=== PATIENT | female | born 1960 | race Caucasian/White ===

== ENCOUNTER 2020-04-10 10:49 | Inpatient (IN) ==
[2020-04-10] MEDS ORDERED: ALBUTEROL SULFATE/IPRATROPIUM 3 ML NEBU IH ONE (11:28)
[2020-04-10] MEDS ORDERED: DEXAMETHASONE SODIUM PHOSP/PF 10 MG/ML VIAL IV ONE (11:28)
[2020-04-10 11:36] LABS: Hematocrit 42.6 % (37.0-47.0); Hemoglobin 13.6 gm/dL (12.5-16.0); Mean Cell Volume 94.7 fl (78-100); Mean Corpuscular Hemoglobin 30.2 pg (27-31); Mean Corpuscular Hgb Conc 31.9 g/dl (32-36); Mean Platelet Volume 12.2 fl (8-12.5); Neutrophil # 11.3 K/mm3 (1.3-6.0); Neutrophil % 89.3 % (42-75.0); Platelet Count 190 K/mm3 (150-450); Red Cell Distribution Width 13.1 % (11.5-14.0); White Blood Count 12.7 K/mm3 (4.0-10.5)
--- NOTE | 2020-04-10 11:46 | ERNOTE ---
Dyspnea - Date Date of Service: 04/10/20 - General Presenting Symptoms: difficulty of breathing Time Seen by Provider: 04/10/20 11:01 Source: patient Exam Limitations: no limitations - Immun/Allergies/Home Medications Immunizations: IMMUNIZATION HX Immunizations Up to Date Yes History of Influenza Vaccine Yes Hx Pneumococcal Vaccination No Allergies/Adverse Reactions: Allergies No Known Allergies Allergy (Verified 04/10/20 11:21) Home Medications: HOME MEDICATIONS coenzyme Q10 200 mg capsule 200 mg PO DAILY 03/03/19 [Last Taken Unknown] diphenhydramine 25 mg-acetaminophen 500 mg tablet 2 tab PO HS 03/03/19 [Last Taken Unknown] metoprolol succinate 50 mg tablet,extended release 24 hr See Rx Instructions .ROUTE .COMPLEX #90 unknown measurement unit code: tablet 12/11/19 [Last Taken Unknown] cyclobenzaprine 10 mg tablet See Rx Instructions .ROUTE .COMPLEX #180 unknown measurement unit code: tablet 03/11/20 [Last Taken Unknown] etodolac 500 mg tablet See Rx Instructions .ROUTE .COMPLEX #180 unknown measurement unit code: tablet 03/11/20 [Last Taken Unknown] - History of Present Illness Narrative: Patient presents to the ED for SOB. 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 She became ill Saturday, nausea, vomiting and now cough/congestion and SOB. Sats 77% RA on arrival. No CP. Legs swell chronically, bno new swelling. No DVT Sx. Mild headache Saturday. Has not seen anyone else for this. Worse with ambulation. 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 Denies: chest pain/discomfort Prior Treatment: Denies: recently seen Review of Systems - Review of Systems Constitutional: Present: fatigue EYE: Present: no symptoms reported ENT: Present: nose congestion Respiratory: Present: shortness of breath, cough Cardiology: Absent: chest pain Gastrointestinal/Abdominal: Present: See HPI Skin: Absent: rash Neurological: Absent: weakness All Other Systems: All systems neg except as marked Medical History (Last Reviewed 04/10/20 @ 11:44 by Jesus García MD) Hypertension (Chronic) Surgical History: Surgical History (Last Reviewed 04/10/20 @ 11:44 by Jesus García MD) History of ankle surgery History of delivery Family History: Family History (Last Reviewed 04/10/20 @ 11:44 by Jesus García MD) Mother Cancer Father Heart disease Social History: (Last Reviewed 04/10/20 @ 11:44 by Jesus García MD) Social History: Marital status: current occupation: RN Highest education level completed: Bachelor's degree Tobacco: Smoking Status: Former smoker Alcohol: alcohol intake: current Alcohol type: hard liquor alcohol intake frequency: holiday/special occasion details: 1 or 2 mixed drinks when she does Substance Use: substance use type: does not use Personal Safety: do you feel safe at home: Yes victim of physical abuse: No victim of emotional abuse: No victim of sexual abuse: No would you like helpful sources: No Physical Exam - Physical Exam General Appearance: Present: alert, other - mild tachypnea Head Exam: Present: normal inspection, no evidence of injury Eye Exam: Normal inspection: bilateral, PERRL: bilateral Ears, Nose, Throat: Present: normal ENT inspection Neck: Present: normal inspection Respiratory: Present: other - diminished bilaterally, mild tachypnea, on oxygen Cardiovascular/Chest: Present: regular rate, rhythm, normal peripheral pulses Gastrointestinal/Abdominal: Present: normal bowel sounds, nontender, soft Back Exam: Present: normal range of motion Extremity Exam: Present: normal range of motion Neurological Exam: Present: alert, no motor/sensory deficits Skin Exam: Present: normal color, warm/dry Progress - Results and Orders Patient's Lab Results:: I have reviewed the patient's lab results. - Vital Signs Patient's Vital Signs:: I have reviewed the patient's vital signs. Vital Signs: Vital Signs 04/10/20 11:05 Temperature 37.8 C Pulse Rate 94 Respiratory Rate 22 H Blood Pressure 109/67 O2 Sat by Pulse Oximetry 77 L - EKG EKG #1 EKG: NSR EKG read: Interp. by me EKG Comments: NSR rate 94. Non-specific ST/T wave changes, no clear evidence of STEMI - X-Ray X-Ray #1 X-Ray: chest Interpretation: Interp. by me X-ray Comments: No real time radiology reads, I personally reviewed CXR images. C/W Covid lung - Progress/Reassessment Chief Complaint: Dyspnea Progress Note-Subjective: 04/10/20 13:17 IV decadron given. Oxygen by NC. SubQ Lovenox given. D/W Dr Greenberg who will admit. Patient will need to be considered fro remdisivir in the hospital. Departure Clinical Impression: Pneumonia due to COVID-19 virus, Hypoxia - Departure Disposition: Still a patient Condition: Fair Referrals: Dionicio Arzate MD [Primary Care Provider] -
[2020-04-10 11:51] LABS: ALT 29 U/L (19-67); AST 59 U/L (0-48); Albumin * 2.7 gm/dl (3.4-5.0); Alkaline Phosphatase * 120 U/L (50-170); Anion Gap 16.5 mmol/L (6.8-13.8); BNP * 291 pg/mL (5-205); BUN/Creatinine Ratio 8.7 (9.0-21.6); Bilirubin, Total 0.7 mg/dL (0.0-1.1); Blood Urea Nitrogen 8 mg/dL (3-23); Ca. Corrected For Albumin 9.2 mg/dL (8.4-10.2); Calcium * 8.5 mg/dL (7.9-10.9); Carbon Dioxide 27.5 mmol/L (24-32.6); Chloride 95 mmol/L (97-106); Glucose * 118 mg/dL (70-110); Sodium 135 mmol/L (132-142); Total Protein 7.9 gm/dL (6.2-8.2); Troponin I Less than 0.017 ng/mL (0.00-0.10)
[2020-04-10] MEDS ORDERED: ENOXAPARIN SODIUM 100 MG/ML SYRG SC ONE (12:52)
[2020-04-10] MEDS ORDERED: ENOXAPARIN SODIUM 80 MG/0.8 ML DISP.SYRIN SC ONE (13:03)
--- NOTE | 2020-04-10 17:38 | HP ---
Chief Complaint - Chief Complaint Date of Service: 04/10/20 Time of Service: 17:32 Chief Complaint: Dyspnea made worse with exertion. History of Present Illness: Patient presents to the ED for SOB. 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 Sats 77% RA on arrival. No CP. Legs swell chronically, bno new swelling. No DVT Sx. Mild headache Saturday. Has not seen anyone else for this. Worse with ambulation. Medical History (Last Reviewed 04/10/20 @ 16:05 by Javan Adair RN) Hypertension (Chronic) Surgical History: Surgical History (Last Reviewed 04/10/20 @ 16:05 by Javan Adair RN) History of ankle surgery History of delivery Family History: Family History (Last Reviewed 04/10/20 @ 16:06 by Javan Adair RN) Mother Cancer Father Heart disease Social History: (Last Reviewed 04/10/20 @ 16:06 by Javan Adair RN) Social History: Marital status: current occupation: RN Highest education level completed: Bachelor's degree Tobacco: Smoking Status: Former smoker Alcohol: alcohol intake: current Alcohol type: hard liquor alcohol intake frequency: holiday/special occasion details: 1 or 2 mixed drinks when she does Substance Use: substance use type: does not use Personal Safety: do you feel safe at home: Yes victim of physical abuse: No victim of emotional abuse: No victim of sexual abuse: No would you like helpful sources: No Review Of Systems (GEN) - Review of Systems Generalized/Overall Review: Present: Weakness, Chills, Fever, Malaise, Fatigue EENTM: Present: No Symptoms Reported Respiratory: Present: Cough, Shortness of Breath Cardiac: Present: No Symptoms Reported Abdominal: Present: No Symptoms Reported Genitourinary: Present: No Symptoms Reported, Dysuria Neurological: Present: No Symptoms Reported Skin: Present: No Symptoms Reported Endocrine: Present: No Symptoms Reported Immunizations: IMMUNIZATION HX Immunizations Up to Date Yes History of Influenza Vaccine Yes Hx Pneumococcal Vaccination No Allergies/Adverse Reactions: Allergies Allergy/AdvReac Type Severity Reaction Status Date / Time No Known Allergies Allergy Verified 04/10/20 16:06 Home Medications: HOME MEDICATIONS coenzyme Q10 200 mg capsule 200 mg PO DAILY 03/03/19 [Last Taken Unknown] diphenhydramine 25 mg-acetaminophen 500 mg tablet 2 tab PO HS 03/03/19 [Last Taken Unknown] Cyclobenzaprine HCl 20 mg PO HS 04/10/20 [Last Taken Unknown] Etodolac See Rx Instructions PO BID 04/10/20 [Last Taken Unknown] Metoprolol Succinate See Rx Instructions .ROUTE DAILY 04/10/20 [Last Taken Unknown] Exam - Exam Vital Signs: Vital Signs - Last Taken Temp 36.8 C 04/10/20 16:08 Pulse 88 04/10/20 16:08 Resp 18 04/10/20 16:08 BP 127/67 04/10/20 16:08 Pulse Ox 95 04/10/20 16:08 Constitutional: Present: Alert, Oriented x3, Cooperative, Well developed, Well nourished, No distress ENT Exam: Present: normal ENT inspection, hearing grossly normal, pharynx normal, TMs normal Eye Exam: bilateral eye: normal inspection, PERRL, EOMI Neck: Present: non-tender, full range of motion, supple, normal inspection, trachea midline Back Exam: Present: normal inspection, no CVA tenderness, no vertebral tenderness Breasts: Present: Exam deferred Respiratory: Present: decreased breath sounds, crackles, rhonchi, wheezing Cardiovascular/Chest: Present: normal peripheral pulses, regular rate, rhythm, no chest tenderness, no edema, no gallop, no JVD, no murmur, no rub Peripheral Pulses: carotid (R): 2+, carotid (L): 2+, radial (R): 2+, radial (L): 2+ Abdomen: Present: Normal bowel sounds, soft, nontender, nondistended, no rebound tenderness, no hepatospenomegaly, no masses, obese /Rectal: Present: Exam deferred Extremity: Present: normal range of motion, non-tender, normal inspection, no pedal edema, no calf tenderness, normal capillary refill Skin Exam: Present: normal color, warm/dry, no cyanosis Lymphatic: Present: no adenopathy Neurologic: Present: tax director II-XII nml as tested, normal cerebellar test, no motor/sensory deficits, alert, normal mood/affect, oriented x 3 Appearance: Present: appropriate appearance, appropriate insight, neat, no memory impairment Eye contact: Present: cooperative, good eye contact, normal speech Thoughts: Present: normal thought pattern, no apparent hallucination Diagnostic Studies: Abnormal Lab Results 04/10/20 04/10/20 04/10/20 Range/Units 11:15 11: 11:15 WBC 12.7 H (4.0-10.5) K/mm3 MCHC 31.9 L (32-36) g/dl Immature Gran % (Auto) 0.70 H (0.001-0.429) % Immature Gran # (Auto) 0.09 H (0.000-0.0310) K/mm3 Neutrophils % 89.3 H (42-75.0) % Lymphocytes % 7.8 L (20-51) % Neutrophils # 11.3 H (1.3-6.0) K/mm3 Lymphocytes # 0.99 L (1.5-3.5) k/mm3 D-Dimer 1.05 H (0.19-0.49) ug/mL Chloride 95 L (97-106) mmol/L Anion Gap 16.5 H (6.8-13.8) mmol/L BUN/Creatinine Ratio 8.7 L (9.0-21.6) Random Glucose 118 H (70-110) mg/dL Lactic Acid, Venous (0.4-2.0) mmol/L AST 59 H (0-48) U/L B-Natriuretic Peptide 291 H (5-205) pg/mL Albumin 2.7 L (3.4-5.0) gm/dl SARS-CoV-2 (PCR) (NotDetected) 04/10/20 04/10/20 Range/Units 11: 11:50 WBC (4.0-10.5) K/mm3 MCHC (32-36) g/dl Immature Gran % (Auto) (0.001-0.429) % Immature Gran # (Auto) (0.000-0.0310) K/mm3 Neutrophils % (42-75.0) % Lymphocytes % (20-51) % Neutrophils # (1.3-6.0) K/mm3 Lymphocytes # (1.5-3.5) k/mm3 D-Dimer (0.19-0.49) ug/mL Chloride (97-106) mmol/L Anion Gap (6.8-13.8) mmol/L BUN/Creatinine Ratio (9.0-21.6) Random Glucose (70-110) mg/dL Lactic Acid, Venous 2.9 H* (0.4-2.0) mmol/L AST (0-48) U/L B-Natriuretic Peptide (5-205) pg/mL Albumin (3.4-5.0) gm/dl SARS-CoV-2 (PCR) Detected H (NotDetected) Laboratory Results WBC 12.7 K/mm3 (4.0-10.5) H 04/10/20 11:15 RBC 4.50 M/mm3 (4.2-5.4) 04/10/20 11:15 Hgb 13.6 gm/dL (12.5-16.0) 04/10/20 11:15 Hct 42.6 % (37.0-47.0) 04/10/20 11:15 MCV 94.7 fl (78-100) 04/10/20 11:15 MCH 30.2 pg (27-31) 04/10/20 11:15 MCHC 31.9 g/dl (32-36) L 04/10/20 11:15 RDW 13.1 % (11.5-14.0) 04/10/20 11:15 Plt Count 190 K/mm3 (150-450) 04/10/20 11:15 MPV 12.2 fl (8-12.5) 04/10/20 11:15 Immature Gran % (Auto) 0.70 % (0.001-0.429) H 04/10/20 11:15 Immature Gran # (Auto) 0.09 K/mm3 (0.000-0.0310) H 04/10/20 11:15 Neutrophils % 89.3 % (42-75.0) H 04/10/20 11:15 Lymphocytes % 7.8 % (20-51) L 04/10/20 11:15 Monocytes % 2.0 % (0.0-9) 04/10/20 11:15 Eosinophils % 0.0 % (0.0-3.0) 04/10/20 11:15 Basophils % 0.2 % (0.0-1.0) 04/10/20 11:15 Nucleated RBC % 0.0 k/mm3 (0-1) 04/10/20 11:15 Neutrophils # 11.3 K/mm3 (1.3-6.0) H 04/10/20 11:15 Lymphocytes # 0.99 k/mm3 (1.5-3.5) L 04/10/20 11:15 Monocytes # 0.3 k/mm3 (0.0-1.0) 04/10/20 11:15 Eosinophils # 0.0 k/mm3 (0.0-0.7) 04/10/20 11:15 Absolute Basophils 0.0 k/mm3 (0.0-0.1) 04/10/20 11:15 D-Dimer 1.05 ug/mL (0.19-0.49) H 04/10/20 11:15 Sodium 135 mmol/L (132-142) 04/10/20 11:15 Plasma Sodium 135 mmol/L (130-142) 04/10/20 11:15 Potassium 4.0 mmol/L (3.4-4.6) 04/10/20 11:15 Chloride 95 mmol/L (97-106) L 04/10/20 11:15 Carbon Dioxide 27.5 mmol/L (24-32.6) 04/10/20 11:15 Anion Gap 16.5 mmol/L (6.8-13.8) H 04/10/20 11:15 BUN 8 mg/dL (3-23) 04/10/20 11:15 Creatinine 0.92 mg/dL (0.4-1.4) 04/10/20 11:15 Est GFR (Non-Af Amer) 66 mL/min (60-130) 04/10/20 11:15 BUN/Creatinine Ratio 8.7 (9.0-21.6) L 04/10/20 11:15 Random Glucose 118 mg/dL (70-110) H 04/10/20 11:15 Lactic Acid, Venous 2.9 mmol/L (0.4-2.0) H* 04/10/20 11:15 Calcium 8.5 mg/dL (7.9-10.9) 04/10/20 11:15 Calcium Adj for Albumin 9.2 mg/dL (8.4-10.2) 04/10/20 11:15 Total Bilirubin 0.7 mg/dL (0.0-1.1) 04/10/20 11:15 AST 59 U/L (0-48) H 04/10/20 11:15 ALT 29 U/L (19-67) 04/10/20 11:15 Alkaline Phosphatase 120 U/L (50-170) 04/10/20 11:15 Troponin I Less than 0.017 ng/mL (0.00-0.10) 04/10/20 11:15 B-Natriuretic Peptide 291 pg/mL (5-205) H 04/10/20 11:15 Total Protein 7.9 gm/dL (6.2-8.2) 04/10/20 11:15 Albumin 2.7 gm/dl (3.4-5.0) L 04/10/20 11:15 Procalcitonin 0.17 ng/mL (0.05-0.50) 04/10/20 11:15 Influenza Type A Ag Negative (NEGATIVE) 04/10/20 12:04 Influenza Type B Ag Negative (NEGATIVE) 04/10/20 12:04 SARS-CoV-2 (PCR) Detected (NotDetected) H 04/10/20 11:50 Assessment/Plan - Narrative Narrative: 1. Start dexamethasone 6 mg p.o. in the morning. She got 10 mg IV in the ER 2. Start enoxaparin 40 mg subcu daily 3. Check lab in the morning to include CBC, CMP, sed rate, CRP, and D-dimer. 4. I reviewed her chest x-ray which shows diffuse interstitial pulmonary infiltrates multilobular pneumonia consistent with COVID-19. 5. Order an EKG in the morning 6. Chest x-ray Saturday 7. Change admission status to regular admission - Assessment/Plan (1) Pneumonia due to COVID-19 virus Problem: Acute (2) Hypoxia Problem: Acute (3) Body mass index (BMI) of 50-59.9 in adult Problem: Chronic (4) Hypertension Problem: Chronic Qualifiers: Hypertension type: essential hypertension
[2020-04-10] MEDS: ENOXAPARIN SODIUM 40 MG/0.4 ML SYRG SC SCH (20:04)
[2020-04-10] MEDS: ACETAMINOPHEN 500 MG TABLET PO SCH (20:42)
[2020-04-10] MEDS: diphenhydrAMINE HCL 50 MG CAPSULE PO SCH (20:43)
[2020-04-10] MEDS: CYCLOBENZAPRINE HCL 10 MG TABLET PO SCH (20:43)
[2020-04-10] MEDS: ETODOLAC 500 MG PO SCH (21:00)
[2020-04-11 07:07] LABS: Hematocrit 41.8 % (37.0-47.0); Hemoglobin 13.3 gm/dL (12.5-16.0); Mean Cell Volume 94.4 fl (78-100); Mean Corpuscular Hgb Conc 31.8 g/dl (32-36); Mean Platelet Volume 11.5 fl (8-12.5); Neutrophil # 13.5 K/mm3 (1.3-6.0); Neutrophil % 86.3 % (42-75.0); Platelet Count 224 K/mm3 (150-450); Red Blood Count 4.43 M/mm3 (4.2-5.4); Red Cell Distribution Width 12.9 % (11.5-14.0); White Blood Count 15.6 K/mm3 (4.0-10.5)
[2020-04-11 07:50] LABS: Albumin * 2.5 gm/dl (3.4-5.0); Anion Gap 12.1 mmol/L (6.8-13.8); BUN/Creatinine Ratio 10.9 (9.0-21.6); Bilirubin, Total 0.5 mg/dL (0.0-1.1); Ca. Corrected For Albumin 9.8 mg/dL (8.4-10.2); Calcium * 8.9 mg/dL (7.9-10.9); Carbon Dioxide 30.3 mmol/L (24-32.6); Potassium 3.4 mmol/L (3.4-4.6); Total Protein 7.6 gm/dL (6.2-8.2)
[2020-04-11 08:20] LABS: CRP 42.5 mg/dL (0.0-0.9)
[2020-04-11] MEDS ORDERED: METOPROLOL SUCCINATE 50 MG TABLET.SA PO SCH (09:00)
[2020-04-11] MEDS ORDERED: DEXAMETHASONE 2 MG TABLET PO ONE (09:00)
[2020-04-11] MEDS: METOPROLOL SUCCINATE 25 MG TABLET.SA PO SCH (09:14)
[2020-04-11] MEDS: ETODOLAC 500 MG PO SCH (09:20)
[2020-04-11] MEDS: IBUPROFEN 800 MG TABLET PO PRN ×2 (09:27→20:09)
--- NOTE | 2020-04-11 12:18 | PN ---
Subjective - Date and Time Seen Date: 04/11/20 Time: 11:45 Subjective Narrative: Patient presented yesterday to the ED for SOB. 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 Sats 77% RA on arrival. Now with mask and 6 liters oxygen in the 90s. No CP. Legs swell chronically, no new new swelling. No DVT Sx. Has not seen anyone else for this. Worse with ambulation. This noon she thinks she is about the same. SOB mainly with activity. Vital signs are stable. Yesterday lactic acid was slightly high, so we will check it again now. Treatment will remain the same. Objective - Review of Systems Generalized/Overall Review: Reports: Weakness, Fatigue EENTM: Reports: No Symptoms Reported Respiratory: Reports: Cough, Shortness of Breath, Other - prince Cardiac: Reports: Edema - chronic lower extremity Abdominal: Denies: Nausea - nausea has resolved, Abdominal Pain, Constipation, Diarrhea Genitourinary Symptoms: Reports: No Symptoms Reported Musculoskeletal Complaints: Reports: Other - body aches, chronic low back and bilateral knee pain Neurological: Reports: Headache Skin: Reports: No Symptoms Reported Endocrine: Reports: No Symptoms Reported Misc: All systems neg except as marked - Vitals Vitals: Last Vital Signs Temp 37.7 C 04/11/20 10:46 Pulse 80 04/11/20 10:46 Resp 24 H 04/11/20 10:46 BP 133/57 04/11/20 10:46 Pulse Ox 94 04/11/20 10:46 - Abnormal Lab Findings Abnormal Lab Findings: Abnormal Lab Results 04/10/20 04/11/20 04/11/20 Range/Units 11:50 06:30 06:30 WBC 15.6 H D (4.0-10.5) K/mm3 MCHC 31.8 L (32-36) g/dl Immature Gran % (Auto) 1.10 H (0.001-0.429) % Immature Gran # (Auto) 0.17 H (0.000-0.0310) K/mm3 Neutrophils % 86.3 H (42-75.0) % Lymphocytes % 8.8 L (20-51) % Neutrophils # 13.5 H (1.3-6.0) K/mm3 Lymphocytes # 1.37 L (1.5-3.5) k/mm3 ESR 77 H (0-15) mm/hr Chloride (97-106) mmol/L Random Glucose (70-110) mg/dL C-Reactive Prot, Quant (0.0-0.9) mg/dL Albumin (3.4-5.0) gm/dl SARS-CoV-2 (PCR) Detected H (NotDetected) 04/11/20 Range/Units 06:30 WBC (4.0-10.5) K/mm3 MCHC (32-36) g/dl Immature Gran % (Auto) (0.001-0.429) % Immature Gran # (Auto) (0.000-0.0310) K/mm3 Neutrophils % (42-75.0) % Lymphocytes % (20-51) % Neutrophils # (1.3-6.0) K/mm3 Lymphocytes # (1.5-3.5) k/mm3 ESR (0-15) mm/hr Chloride 96 L (97-106) mmol/L Random Glucose 146 H (70-110) mg/dL C-Reactive Prot, Quant 42.5 H (0.0-0.9) mg/dL Albumin 2.5 L (3.4-5.0) gm/dl SARS-CoV-2 (PCR) (NotDetected) - Exam Constitutional: Present: Alert, Oriented x3, Cooperative, Well developed, No distress, Morbidly obese ENT Exam: Present: normal ENT inspection, hearing grossly normal Neck: Present: normal inspection. Absent: lymphadenopathy (R), lymphadenopathy (L), thyromegaly Respiratory: Present: decreased breath sounds, rhonchi Cardiovascular/Chest: Present: regular rate, rhythm, no gallop, no JVD, no murmur Abdomen: Present: Normal bowel sounds, soft, nontender, nondistended, no hepatospenomegaly, no masses, obese /Rectal: Present: Exam deferred Extremity: Present: normal capillary refill, other - minimal edema below the knees both sides Lymphatic: Present: no adenopathy Neurologic: Present: normal mood/affect Appearance: Present: appropriate appearance, appropriate insight, neat, no memory impairment Eye contact: Present: cooperative, good eye contact, normal speech Thoughts: Present: normal thought pattern Assessment/Plan Plan Narrative: stable. not better, not worse. as she improves we will try to taper oxygen. - Problems/Diagnosis (1) Hypoxia Problem: Acute (2) Pneumonia due to COVID-19 virus Problem: Acute Narrative: same treatment: supportive plus dexamethasone for 10 days total. (3) Body mass index (BMI) of 50-59.9 in adult Problem: Chronic (4) Chronic low back pain Problem: Chronic Qualifiers: Back pain laterality: bilateral Sciatica presence: without sciatica Qualified Code(s): M54.5 - Low back pain; G89.29 - Other chronic pain (5) Chronic pain of both knees Problem: Chronic (6) Hypertension Problem: Chronic Qualifiers: Hypertension type: essential hypertension
--- NOTE | 2020-04-11 15:03 | PN ---
Subjective - Date and Time Seen Date: 04/11/20 Time: 15:01 Subjective Narrative: the patient is in fact being treated for acute hypoxic respiratory failure. Objective - Vitals Vitals: Last Vital Signs Temp 37.0 C 04/11/20 14:00 Pulse 77 04/11/20 14:00 Resp 24 H 04/11/20 14:00 BP 117/60 04/11/20 14:00 Pulse Ox 98 04/11/20 14:00 - Abnormal Lab Findings Abnormal Lab Findings: Abnormal Lab Results 04/11/20 04/11/20 04/11/20 Range/Units 06:30 06:30 06:30 WBC 15.6 H D (4.0-10.5) K/mm3 MCHC 31.8 L (32-36) g/dl Immature Gran % (Auto) 1.10 H (0.001-0.429) % Immature Gran # (Auto) 0.17 H (0.000-0.0310) K/mm3 Neutrophils % 86.3 H (42-75.0) % Lymphocytes % 8.8 L (20-51) % Neutrophils # 13.5 H (1.3-6.0) K/mm3 Lymphocytes # 1.37 L (1.5-3.5) k/mm3 ESR 77 H (0-15) mm/hr Chloride 96 L (97-106) mmol/L Random Glucose 146 H (70-110) mg/dL C-Reactive Prot, Quant 42.5 H (0.0-0.9) mg/dL Albumin 2.5 L (3.4-5.0) gm/dl Assessment/Plan - Problems/Diagnosis (1) Respiratory failure with hypoxia Problem: Acute Qualifiers: Chronicity: acute Qualified Code(s): J96.01 - Acute respiratory failure with hypoxia (2) Hypoxia Problem: Acute (3) Pneumonia due to COVID-19 virus Problem: Acute (4) Body mass index (BMI) of 50-59.9 in adult Problem: Chronic (5) Chronic low back pain Problem: Chronic Qualifiers: Back pain laterality: bilateral Sciatica presence: without sciatica Qualified Code(s): M54.5 - Low back pain; G89.29 - Other chronic pain (6) Chronic pain of both knees Problem: Chronic (7) Hypertension Problem: Chronic Qualifiers: Hypertension type: essential hypertension
[2020-04-11] MEDS: ENOXAPARIN SODIUM 40 MG/0.4 ML SYRG SC SCH (18:14)
[2020-04-11] MEDS: ACETAMINOPHEN 500 MG TABLET PO SCH (20:09)
[2020-04-11] MEDS: CYCLOBENZAPRINE HCL 10 MG TABLET PO SCH (20:09)
[2020-04-11] MEDS: diphenhydrAMINE HCL 50 MG CAPSULE PO SCH (20:09)
[2020-04-12 06:43] LABS: Hematocrit 38.8 % (37.0-47.0); Hemoglobin 12.3 gm/dL (12.5-16.0); Mean Cell Volume 95.8 fl (78-100); Mean Corpuscular Hemoglobin 30.4 pg (27-31); Mean Corpuscular Hgb Conc 31.7 g/dl (32-36); Mean Platelet Volume 11.4 fl (8-12.5); Neutrophil # 12.5 K/mm3 (1.3-6.0); Neutrophil % 85.9 % (42-75.0); Platelet Count 259 K/mm3 (150-450); Red Blood Count 4.05 M/mm3 (4.2-5.4); Red Cell Distribution Width 13.1 % (11.5-14.0); White Blood Count 14.5 K/mm3 (4.0-10.5)
[2020-04-12 07:07] LABS: BUN/Creatinine Ratio 16.7 (9.0-21.6); Carbon Dioxide 29.3 mmol/L (24-32.6); Estimated Creat Clear 48.4; Potassium 3.5 mmol/L (3.4-4.6)
[2020-04-12 07:08] LABS: Anion Gap 11.2 mmol/L (6.8-13.8)
[2020-04-12] MEDS: METOPROLOL SUCCINATE 25 MG TABLET.SA PO SCH (09:15)
[2020-04-12] MEDS: DEXAMETHASONE 2 MG TABLET PO SCH (09:16)
[2020-04-12] MEDS: IBUPROFEN 800 MG TABLET PO PRN ×2 (11:44→21:28)
--- NOTE | 2020-04-12 12:20 | PN ---
Subjective - Date and Time Seen Date: 04/12/20 Time: 11:55 Subjective Narrative: Patient presented 2 days ago to the ED for SOB. 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 Sats 77% RA on arrival in ED. No CP. Legs swell chronically, no new new swelling. No DVT Sx. Has not seen anyone else for this. Worse with ambulation. her chest congestion and cough are a little improved. she is otherwise about the same. Her vitals are stable. resp rate remains 22-23. we tried to wean O2 down to nasal cannula, but her O2 sats dropped, so we have now resumed mask, and this time with 10 liters. new goal is to keep O2 sats above 92%. her glucose this morning is elevated. her wbc count is lower than yesterday. her lactic acid level returned to normal. we will check a CBC and Hgb a1c tomorrow. Objective - Review of Systems Generalized/Overall Review: Reports: Malaise, Fatigue EENTM: Reports: No Symptoms Reported Respiratory: Reports: Cough, Shortness of Breath Cardiac: Denies: Edema Abdominal: Reports: No Symptoms Reported Musculoskeletal Complaints: Reports: No Symptoms Reported Neurological: Reports: No Symptoms Reported Endocrine: Reports: No Symptoms Reported Misc: All systems neg except as marked - Vitals Vitals: Last Vital Signs Temp 35.9 C L 04/12/20 09:23 Pulse 80 04/12/20 09:23 Resp 24 H 04/12/20 09:23 BP 141/78 H 04/12/20 09:23 Pulse Ox 90 L 04/12/20 09:23 - Abnormal Lab Findings Abnormal Lab Findings: Abnormal Lab Results 04/12/20 04/12/20 Range/Units 06:30 06:30 WBC 14.5 H (4.0-10.5) K/mm3 RBC 4.05 L (4.2-5.4) M/mm3 Hgb 12.3 L (12.5-16.0) gm/dL MCHC 31.7 L (32-36) g/dl Immature Gran % (Auto) 1.20 H (0.001-0.429) % Immature Gran # (Auto) 0.17 H (0.000-0.0310) K/mm3 Neutrophils % 85.9 H (42-75.0) % Lymphocytes % 7.8 L (20-51) % Neutrophils # 12.5 H (1.3-6.0) K/mm3 Lymphocytes # 1.14 L (1.5-3.5) k/mm3 Chloride 96 L (97-106) mmol/L Est GFR (Non-Af Amer) 55 L (60-130) mL/min Random Glucose 147 H (70-110) mg/dL - Exam Constitutional: Present: Alert, Oriented x3, Cooperative, Well developed, Morbidly obese ENT Exam: Present: normal ENT inspection, hearing grossly normal Neck: Present: normal inspection. Absent: lymphadenopathy (R), lymphadenopathy (L), tender midline Breasts: Present: Exam deferred Respiratory: Present: lungs clear, normal breath sounds Cardiovascular/Chest: Present: regular rate, rhythm, no edema, no gallop, no JVD, no murmur Abdomen: Present: Normal bowel sounds, soft, nontender, nondistended, no hepatospenomegaly, no masses, obese /Rectal: Present: Exam deferred Extremity: Present: normal inspection, slow capillary refill Skin Exam: Present: normal color, warm/dry Lymphatic: Present: no adenopathy Neurologic: Present: normal mood/affect Appearance: Present: appropriate appearance, appropriate insight, neat, no memory impairment Eye contact: Present: cooperative, good eye contact, normal speech Thoughts: Present: normal thought pattern Assessment/Plan - Problems/Diagnosis (1) Respiratory failure with hypoxia Problem: Acute Qualifiers: Chronicity: acute Qualified Code(s): J96.01 - Acute respiratory failure with hypoxia Narrative: we will keep O2 sat above 94 and monitor. (2) Pneumonia due to COVID-19 virus Problem: Acute Narrative: continue dexamethasone and monitor. (3) Body mass index (BMI) of 50-59.9 in adult Problem: Chronic (4) Chronic low back pain Problem: Chronic Qualifiers: Back pain laterality: bilateral Sciatica presence: without sciatica Qualified Code(s): M54.5 - Low back pain; G89.29 - Other chronic pain (5) Chronic pain of both knees Problem: Chronic (6) Hypertension Problem: Chronic Qualifiers: Hypertension type: essential hypertension
[2020-04-12] MEDS: ENOXAPARIN SODIUM 40 MG/0.4 ML SYRG SC SCH (17:12)
[2020-04-12] MEDS: diphenhydrAMINE HCL 50 MG CAPSULE PO SCH (21:29)
[2020-04-12] MEDS: ACETAMINOPHEN 500 MG TABLET PO SCH (21:29)
[2020-04-12] MEDS: CYCLOBENZAPRINE HCL 10 MG TABLET PO SCH (21:31)
[2020-04-13 06:50] LABS: Hematocrit 39.8 % (37.0-47.0); Hemoglobin 12.6 gm/dL (12.5-16.0); Mean Cell Volume 95.2 fl (78-100); Mean Corpuscular Hemoglobin 30.1 pg (27-31); Mean Corpuscular Hgb Conc 31.7 g/dl (32-36); Mean Platelet Volume 11.4 fl (8-12.5); Neutrophil # 8.7 K/mm3 (1.3-6.0); Neutrophil % 78.5 % (42-75.0); Platelet Count 281 K/mm3 (150-450); Red Blood Count 4.18 M/mm3 (4.2-5.4); White Blood Count 11.1 K/mm3 (4.0-10.5)
[2020-04-13 07:12] LABS: Hemoglobin A1C 6.2 % (3.80-5.60)
--- NOTE | 2020-04-13 07:37 | PN ---
Subjective - Date and Time Seen Date: 04/13/20 Time: 06:40 Subjective Narrative: cough a little better. no chest discomfort. sob with exertion a little better. has no appetite. nothing sounds good to her. vitals are stable. O2 sats are staying at mid to low 90's with 10 liters/min O2 with mask. chemistries stable. wbc count decreasing. FBS 146-147, Hgb a1c 6.2, therefor she has prediabetes. I haven't discussed this with her yet, but I will. we will adjust her diet and because she isn't eating, will add glucerna or something similar. otherwise treatment will be supportive and we will adjust as needed. discussed situation with Deisi's permission with and daughter and answered all of their questions. Objective - Review of Systems Generalized/Overall Review: Reports: Malaise, Fatigue. Denies: Chills, Diaphoresis EENTM: Reports: No Symptoms Reported Respiratory: Reports: Cough, Shortness of Breath. Denies: Wheezing Cardiac: Reports: No Symptoms Reported Genitourinary Symptoms: Reports: No Symptoms Reported Musculoskeletal Complaints: Reports: Joint Pain - both knees, chronic, Back Pain Neurological: Reports: No Symptoms Reported Skin: Reports: No Symptoms Reported Endocrine: Reports: No Symptoms Reported Misc: All systems neg except as marked - Vitals Vitals: Last Vital Signs Temp 36.9 C 04/13/20 01:02 Pulse 76 04/13/20 04:00 Resp 20 04/13/20 01:02 BP 113/80 04/13/20 01:02 Pulse Ox 92 L 04/13/20 01:02 - Abnormal Lab Findings Abnormal Lab Findings: Abnormal Lab Results 04/13/20 04/13/20 Range/Units 06:45 06:45 WBC 11.1 H D (4.0-10.5) K/mm3 RBC 4.18 L (4.2-5.4) M/mm3 MCHC 31.7 L (32-36) g/dl Immature Gran % (Auto) 1.90 H (0.001-0.429) % Immature Gran # (Auto) 0.21 H (0.000-0.0310) K/mm3 Neutrophils % 78.5 H (42-75.0) % Lymphocytes % 10.8 L (20-51) % Neutrophils # 8.7 H (1.3-6.0) K/mm3 Lymphocytes # 1.20 L (1.5-3.5) k/mm3 Hemoglobin A1c 6.2 H (3.80-5.60) % - Exam Constitutional: Present: Alert, Oriented x3, Cooperative, Well developed, Morbidly obese ENT Exam: Present: normal ENT inspection, hearing grossly normal Neck: Present: normal inspection. Absent: lymphadenopathy (R), lymphadenopathy (L), thyromegaly Breasts: Present: Exam deferred Respiratory: Present: lungs clear, no respiratory distress, decreased breath sounds Cardiovascular/Chest: Present: regular rate, rhythm, no edema, no gallop, no JVD, no murmur Abdomen: Present: Normal bowel sounds, soft, nontender, nondistended, no hepatospenomegaly, no masses, obese /Rectal: Present: Exam deferred Extremity: Present: normal inspection, normal capillary refill Skin Exam: Present: normal color, warm/dry Lymphatic: Present: no adenopathy Neurologic: Present: normal mood/affect Appearance: Present: appropriate appearance, appropriate insight, neat Eye contact: Present: cooperative, good eye contact, normal speech Thoughts: Present: normal thought pattern Assessment/Plan - Problems/Diagnosis (1) Respiratory failure with hypoxia Problem: Acute Qualifiers: Chronicity: acute Qualified Code(s): J96.01 - Acute respiratory failure with hypoxia Narrative: supplemental O2 as needed and monitor. (2) Pneumonia due to COVID-19 virus Problem: Acute Narrative: monitor vitals and labs. adjustment as needed. treatment at present is supportive plus steroids. (3) Body mass index (BMI) of 50-59.9 in adult Problem: Chronic (4) Anorexia Problem: Acute Narrative: add nutritional supplements. (5) Prediabetes Problem: Acute Narrative: will discuss in near future during this hospitalization. will adjust diet. (6) Chronic low back pain Problem: Chronic Qualifiers: Back pain laterality: bilateral Sciatica presence: without sciatica Qualified Code(s): M54.5 - Low back pain; G89.29 - Other chronic pain (7) Chronic pain of both knees Problem: Chronic (8) Hypertension Problem: Chronic Qualifiers: Hypertension type: essential hypertension
[2020-04-13] MEDS: METOPROLOL SUCCINATE 25 MG TABLET.SA PO SCH (08:59)
[2020-04-13] MEDS: DEXAMETHASONE 2 MG TABLET PO SCH (08:59)
[2020-04-13] MEDS: IBUPROFEN 800 MG TABLET PO PRN ×2 (08:59→20:32)
[2020-04-13] MEDS: ENOXAPARIN SODIUM 40 MG/0.4 ML SYRG SC SCH (17:29)
[2020-04-13] MEDS: diphenhydrAMINE HCL 50 MG CAPSULE PO SCH (20:32)
[2020-04-13] MEDS: CYCLOBENZAPRINE HCL 10 MG TABLET PO SCH (20:32)
[2020-04-13] MEDS: ACETAMINOPHEN 500 MG TABLET PO SCH (20:32)
[2020-04-14 06:53] LABS: Hemoglobin 12.5 gm/dL (12.5-16.0); Mean Cell Volume 95.5 fl (78-100); Mean Corpuscular Hemoglobin 29.8 pg (27-31); Mean Corpuscular Hgb Conc 31.3 g/dl (32-36); Mean Platelet Volume 11.5 fl (8-12.5); Platelet Count 271 K/mm3 (150-450); Red Blood Count 4.19 M/mm3 (4.2-5.4); White Blood Count 11.7 K/mm3 (4.0-10.5)
[2020-04-14 07:16] LABS: Total Cells Counted 100
[2020-04-14 07:30] LABS: Atypical (Reactive) Lymph 1 % (0-2); Band 2 % (0-2.0); Immature Granulocyte 2 (0-1); Lymphocyte 7 % (20-51); Monocyte 9 % (0-9); Neutrophil 79 % (42-75); Neutrophil # 9.2 K/mm3 (1.3-6.0)
[2020-04-14 07:32] LABS: Platelet Estimate Normal (NORMAL)
[2020-04-14 07:35] LABS: Hypersegmented Polys Trace; Hypochromia Trace
[2020-04-14] MEDS: METOPROLOL SUCCINATE 25 MG TABLET.SA PO SCH (08:43)
[2020-04-14] MEDS: DEXAMETHASONE 2 MG TABLET PO SCH (08:43)
[2020-04-14] MEDS: IBUPROFEN 800 MG TABLET PO PRN ×2 (08:43→20:50)
--- NOTE | 2020-04-14 12:09 | PN ---
Subjective - Date and Time Seen Date: 04/14/20 Time: 11:45 Subjective Narrative: cough a little better. no chest discomfort. sob with exertion a little better. still has no appetite. vitals are stable. O2 sat went up to 100% this morning after a prolonged coughing spell, the highest it's been since admission. When she moves around however, they drop to the mid to high 80s. We will keep her oxygen dose the same. wbc count about the same. at the present time it may have persistent elevation due to the dexamethasone. otherwise treatment will be supportive and we will adjust as needed. Objective - Review of Systems Generalized/Overall Review: Reports: Malaise, Fatigue EENTM: Reports: No Symptoms Reported Respiratory: Reports: Cough, Shortness of Breath. Denies: Orthopnea, Wheezing Cardiac: Denies: Chest Pain, Edema Abdominal: Denies: Nausea, Abdominal Pain, Constipation, Diarrhea Genitourinary Symptoms: Reports: No Symptoms Reported Musculoskeletal Complaints: Reports: Back Pain Neurological: Reports: No Symptoms Reported Skin: Reports: No Symptoms Reported Endocrine: Reports: No Symptoms Reported Misc: All systems neg except as marked - Vitals Vitals: Last Vital Signs Temp 35.9 C L 04/14/20 11:26 Pulse 69 04/14/20 11:26 Resp 20 04/14/20 11:26 BP 134/80 04/14/20 11:26 Pulse Ox 100 04/14/20 11:54 - Abnormal Lab Findings Abnormal Lab Findings: Abnormal Lab Results 04/14/20 Range/Units 06:15 WBC 11.7 H (4.0-10.5) K/mm3 RBC 4.19 L (4.2-5.4) M/mm3 MCHC 31.3 L (32-36) g/dl Neutrophils % (Manual) 79 H (42-75) % Lymphocytes % (Manual) 7 L (20-51) % Immature Granulocytes 2 H (0-1) Neutrophils # (Manual) 9.2 H (1.3-6.0) K/mm3 Lymphocytes # (Manual) 0.8 L (1.5-3.5) k/mm3 Monocytes # (Manual) 1.1 H (0.0-1.0) k/mm3 - Exam Constitutional: Present: Alert, Oriented x3, Cooperative, Well developed, Morbidly obese ENT Exam: Present: normal ENT inspection, hearing grossly normal Neck: Present: normal inspection. Absent: lymphadenopathy (R), lymphadenopathy (L), thyromegaly Respiratory: Present: lungs clear, no respiratory distress, decreased breath s ounds Cardiovascular/Chest: Present: regular rate, rhythm, no gallop, no JVD, no murmur Abdomen: Present: Normal bowel sounds, soft, nontender, nondistended, no hepatospenomegaly, no masses, obese /Rectal: Present: Exam deferred Extremity: Present: normal inspection, normal capillary refill Skin Exam: Present: normal color, warm/dry Lymphatic: Present: no adenopathy Neurologic: Present: normal mood/affect Appearance: Present: appropriate appearance, appropriate insight, neat Eye contact: Present: cooperative, good eye contact, normal speech Thoughts: Present: normal thought pattern Assessment/Plan - Problems/Diagnosis (1) Respiratory failure with hypoxia Problem: Acute Qualifiers: Chronicity: acute Qualified Code(s): J96.01 - Acute respiratory failure with hypoxia Narrative: she had a prolonged coughing spell this morning, after which her O2 sats with mask and 10 Liters increased to 100% at rest. That's the highest it has been this admission. On the other hand, when she moves around it drops into the mid to upper 80s. For now, we will keep the oxygen supplement the same. (2) Pneumonia due to COVID-19 virus Problem: Acute (3) Body mass index (BMI) of 50-59.9 in adult Problem: Chronic (4) Anorexia Problem: Acute (5) Prediabetes Problem: Acute Narrative: discussed prediabetes with her and the plan for consistent carb diet with diabetic nutritional supplements for now. (6) Chronic low back pain Problem: Chronic Qualifiers: Back pain laterality: bilateral Sciatica presence: without sciatica Qualified Code(s): M54.5 - Low back pain; G89.29 - Other chronic pain (7) Chronic pain of both knees Problem: Chronic (8) Hypertension Problem: Chronic Qualifiers: Hypertension type: essential hypertension Qualified Code(s): I10 - Essential (primary) hypertension
[2020-04-14] MEDS: ENOXAPARIN SODIUM 40 MG/0.4 ML SYRG SC SCH (17:07)
[2020-04-14] MEDS: ACETAMINOPHEN 500 MG TABLET PO SCH (20:45)
[2020-04-14] MEDS: diphenhydrAMINE HCL 50 MG CAPSULE PO SCH (20:46)
[2020-04-14] MEDS: CYCLOBENZAPRINE HCL 10 MG TABLET PO SCH (20:46)
[2020-04-15 07:05] LABS: Hematocrit 40.2 % (37.0-47.0); Hemoglobin 12.8 gm/dL (12.5-16.0); Mean Cell Volume 94.4 fl (78-100); Mean Corpuscular Hgb Conc 31.8 g/dl (32-36); Platelet Count 274 K/mm3 (150-450); Red Blood Count 4.26 M/mm3 (4.2-5.4); Red Cell Distribution Width 12.9 % (11.5-14.0); White Blood Count 11.1 K/mm3 (4.0-10.5)
[2020-04-15 07:07] LABS: Total Cells Counted 100
[2020-04-15 07:57] LABS: Atypical (Reactive) Lymph 1 % (0-2); Band 1 % (0-2.0); Immature Granulocyte 6 (0-1); Lymphocyte 10 % (20-51); Monocyte 10 % (0-9); Neutrophil 72 % (42-75); Platelet Estimate Normal (NORMAL)
[2020-04-15 07:59] LABS: Hypersegmented Polys Trace
[2020-04-15 08:00] LABS: Giant Platelets Trace; Hypochromia Trace
[2020-04-15] MEDS: IBUPROFEN 800 MG TABLET PO PRN ×2 (08:39→20:19)
[2020-04-15] MEDS: METOPROLOL SUCCINATE 25 MG TABLET.SA PO SCH (08:39)
[2020-04-15] MEDS: DEXAMETHASONE 2 MG TABLET PO SCH (08:39)
--- NOTE | 2020-04-15 12:01 | PN ---
Subjective - Date and Time Seen Date: 04/15/20 Time: 11:45 Subjective Narrative: cough a little better. no chest discomfort. sob with exertion a little better. still has no appetite. drinking nutritional supplements. vitals are stable. Oxygen was decreased to 7 Liters about midnight, and she is still maintaining O2 sats in the low to mid 90s. We will continue to taper as able. wbc count about the same. otherwise treatment will remain supportive and we will adjust as needed. Objective - Review of Systems Generalized/Overall Review: Reports: Malaise, Fatigue EENTM: Reports: No Symptoms Reported Respiratory: Reports: Cough, Shortness of Breath Cardiac: Denies: Chest Pain, Edema Abdominal: Denies: Nausea, Abdominal Pain, Constipation, Diarrhea Genitourinary Symptoms: Reports: No Symptoms Reported Musculoskeletal Complaints: Reports: Back Pain Neurological: Reports: No Symptoms Reported Skin: Reports: No Symptoms Reported Endocrine: Reports: No Symptoms Reported Misc: All systems neg except as marked - Vitals Vitals: Last Vital Signs Temp 36.4 C 04/15/20 07:02 Pulse 67 04/15/20 11:00 Resp 20 04/15/20 11:00 BP 130/58 04/15/20 11:00 Pulse Ox 94 04/15/20 11:00 - Abnormal Lab Findings Abnormal Lab Findings: Abnormal Lab Results 04/15/20 Range/Units 06:50 WBC 11.1 H (4.0-10.5) K/mm3 MCHC 31.8 L (32-36) g/dl Lymphocytes % (Manual) 10 L (20-51) % Monocytes % (Manual) 10 H (0-9) % Immature Granulocytes 6 H (0-1) Neutrophils # (Manual) 8.0 H (1.3-6.0) K/mm3 Lymphocytes # (Manual) 1.1 L (1.5-3.5) k/mm3 Monocytes # (Manual) 1.1 H (0.0-1.0) k/mm3 - Exam Exam Narrative: vitals are stable. Constitutional: Present: Alert, Oriented x3, Cooperative, Well developed, No distress, Morbidly obese ENT Exam: Present: normal ENT inspection, hearing grossly normal Neck: Present: normal inspection. Absent: lymphadenopathy (R), lymphadenopathy (L), thyromegaly Breasts: Present: Exam deferred Respiratory: Present: no respiratory distress, rales - scattered Cardiovascular/Chest: Present: regular rate, rhythm, no gallop, no JVD, no murmur Abdomen: Present: Normal bowel sounds, soft, nontender, nondistended, no hepatospenomegaly, no masses, obese /Rectal: Present: Exam deferred Extremity: Present: normal inspection, normal capillary refill Skin Exam: Present: normal color, warm/dry Lymphatic: Present: no adenopathy Neurologic: Present: normal mood/affect Appearance: Present: appropriate appearance, appropriate insight, neat Eye contact: Present: cooperative, good eye contact, normal speech Thoughts: Present: normal thought pattern Assessment/Plan - Problems/Diagnosis (1) Respiratory failure with hypoxia Problem: Acute Qualifiers: Chronicity: acute Qualified Code(s): J96.01 - Acute respiratory failure with hypoxia Narrative: we will taper O2 as tolerated. (2) Pneumonia due to COVID-19 virus Problem: Acute Narrative: we will continue supportive care (3) Body mass index (BMI) of 50-59.9 in adult Problem: Chronic (4) Anorexia Problem: Acute (5) Prediabetes Problem: Acute (6) Chronic low back pain Problem: Chronic Qualifiers: Back pain laterality: bilateral Sciatica presence: without sciatica Qualified Code(s): M54.5 - Low back pain; G89.29 - Other chronic pain (7) Chronic pain of both knees Problem: Chronic (8) Hypertension Problem: Chronic Qualifiers: Hypertension type: essential hypertension Qualified Code(s): I10 - Essential (primary) hypertension
[2020-04-15] MEDS: ENOXAPARIN SODIUM 40 MG/0.4 ML SYRG SC SCH ×2 (16:49→17:00)
[2020-04-15] MEDS: ACETAMINOPHEN 500 MG TABLET PO SCH (20:18)
[2020-04-15] MEDS: CYCLOBENZAPRINE HCL 10 MG TABLET PO SCH (20:19)
[2020-04-15] MEDS: diphenhydrAMINE HCL 50 MG CAPSULE PO SCH (20:19)
[2020-04-16] MEDS: DEXAMETHASONE 2 MG TABLET PO SCH (08:52)
[2020-04-16] MEDS: METOPROLOL SUCCINATE 25 MG TABLET.SA PO SCH (08:53)
[2020-04-16] MEDS ORDERED: FUROSEMIDE 10 MG/ML VIAL IV ONE (11:24)
--- NOTE | 2020-04-16 11:33 | PN ---
Subjective - Date and Time Seen Date: 04/16/20 Time: 11:00 Subjective Narrative: She is having frequent coughing episodes, which cause desaturations. Is oxygenating on 7L via oxymask. Mobility has been limited. Is drinking fluids. Objective - Review of Systems Generalized/Overall Review: Reports: Weakness. Denies: Fever Respiratory: Reports: Cough, Shortness of Breath Cardiac: Denies: Chest Pain Abdominal: Reports: No Symptoms Reported Genitourinary Symptoms: Reports: No Symptoms Reported Musculoskeletal Complaints: Reports: No Symptoms Reported - Vitals Vitals: Last Vital Signs Temp 36.4 C 04/16/20 09:49 Pulse 65 04/16/20 09:49 Resp 18 04/16/20 09:49 BP 139/74 04/16/20 09:49 Pulse Ox 94 04/16/20 09:49 - Exam Constitutional: Present: Alert, Cooperative, No distress, Obese Respiratory: Present: normal breath sounds, other - frequent dry cough. Using 7L O2 via oxymask Cardiovascular/Chest: Present: regular rate, rhythm Abdomen: Present: soft Extremity: Present: lower extremity edema - trace Neurologic: Present: normal mood/affect Eye contact: Present: cooperative, good eye contact Assessment/Plan Plan Narrative: Today is hospitalization day #7, and symptom day #9. Will administer 20 mg IV lasix, as COVID patients anecdotally do better when borderline dehydrated. Her oxygen requirement is gradually decreasing, and is currently at 7 L via oxymask. Continue decadron and lovenox. She likely will be hospitalized for several more days. - Problems/Diagnosis (1) Pneumonia due to COVID-19 virus Problem: Acute (2) Respiratory failure with hypoxia Problem: Acute Qualifiers: Chronicity: acute Qualified Code(s): J96.01 - Acute respiratory failure with hypoxia (3) Prediabetes Problem: Chronic (4) Body mass index (BMI) of 50-59.9 in adult Problem: Chronic (5) Chronic low back pain Problem: Chronic Qualifiers: Back pain laterality: bilateral Sciatica presence: without sciatica Qualified Code(s): M54.5 - Low back pain; G89.29 - Other chronic pain (6) Chronic pain of both knees Problem: Chronic (7) Hypertension Problem: Chronic Qualifiers: Hypertension type: essential hypertension Qualified Code(s): I10 - Essential (primary) hypertension
[2020-04-16] MEDS: ENOXAPARIN SODIUM 40 MG/0.4 ML SYRG SC SCH (17:19)
[2020-04-16] MEDS: CYCLOBENZAPRINE HCL 10 MG TABLET PO SCH (20:54)
[2020-04-16] MEDS: IBUPROFEN 800 MG TABLET PO PRN (20:55)
[2020-04-16] MEDS: ACETAMINOPHEN 500 MG TABLET PO SCH (20:55)
[2020-04-16] MEDS: diphenhydrAMINE HCL 50 MG CAPSULE PO SCH (20:55)
[2020-04-17 07:27] LABS: Albumin * 2.6 gm/dl (3.4-5.0); Anion Gap 10.4 mmol/L (6.8-13.8); Bilirubin, Total 0.6 mg/dL (0.0-1.1); Ca. Corrected For Albumin 9.4 mg/dL (8.4-10.2); Calcium * 8.6 mg/dL (7.9-10.9); Carbon Dioxide 29.3 mmol/L (24-32.6); Potassium 3.7 mmol/L (3.4-4.6); Total Protein 7.4 gm/dL (6.2-8.2)
--- NOTE | 2020-04-17 09:10 | PN ---
Subjective - Date and Time Seen Date: 04/17/20 Time: 09:30 Subjective Narrative: Patient reports mild improvement in her cough and breathing. She is oxygenating on the venturi mask. Appetite is still limited. She feels like the lasix might have been helpful. Hasn't been sleeping well. Objective - Review of Systems Generalized/Overall Review: Denies: Fever Respiratory: Reports: Cough, Shortness of Breath Cardiac: Reports: Edema - at baseline. Denies: Chest Pain Abdominal: Reports: Other - decreased appetite Genitourinary Symptoms: Reports: No Symptoms Reported - Vitals Vitals: Last Vital Signs Temp 35.7 C L 04/17/20 07:27 Pulse 63 04/17/20 07:27 Resp 20 04/17/20 07:27 BP 134/65 04/17/20 07:27 Pulse Ox 95 04/17/20 07:27 - Abnormal Lab Findings Abnormal Lab Findings: Abnormal Lab Results 04/17/20 Range/Units 06:45 Random Glucose 135 H (70-110) mg/dL Albumin 2.6 L (3.4-5.0) gm/dl - Exam Constitutional: Present: Alert, No distress, Obese Respiratory: Present: no respiratory distress, other - wearing venturi mask Cardiovascular/Chest: Present: regular rate, rhythm Abdomen: Present: soft Extremity: Absent: lower extremity edema Eye contact: Present: cooperative, good eye contact Assessment/Plan Plan Narrative: Today is hospitalization day #8, and symptom day #10. Her oxygen requirement is gradually decreasing, and she's currently using venturi mask at 15L. She felt like the lasix may have been helpful, so this was repeated. Continue decadron, lovenox. Anticipate at least 2 additional midnights for this hospital stay. - Problems/Diagnosis (1) Pneumonia due to COVID-19 virus Problem: Acute (2) Respiratory failure with hypoxia Problem: Acute Qualifiers: Chronicity: acute Qualified Code(s): J96.01 - Acute respiratory failure with hypoxia (3) Prediabetes Problem: Chronic (4) Body mass index (BMI) of 50-59.9 in adult Problem: Chronic (5) Chronic low back pain Problem: Chronic Qualifiers: Back pain laterality: bilateral Sciatica presence: without sciatica Qualified Code(s): M54.5 - Low back pain; G89.29 - Other chronic pain (6) Chronic pain of both knees Problem: Chronic (7) Hypertension Problem: Chronic Qualifiers: Hypertension type: essential hypertension Qualified Code(s): I10 - Essential (primary) hypertension
[2020-04-17] MEDS: DEXAMETHASONE 2 MG TABLET PO SCH (10:38)
[2020-04-17] MEDS: METOPROLOL SUCCINATE 25 MG TABLET.SA PO SCH (10:38)
[2020-04-17] MEDS ORDERED: FUROSEMIDE 10 MG/ML VIAL IV ONE (11:09)
[2020-04-17] MEDS: ENOXAPARIN SODIUM 40 MG/0.4 ML SYRG SC SCH (17:04)
[2020-04-17] MEDS: diphenhydrAMINE HCL 50 MG CAPSULE PO SCH (20:43)
[2020-04-17] MEDS: CYCLOBENZAPRINE HCL 10 MG TABLET PO SCH (20:43)
[2020-04-17] MEDS: ACETAMINOPHEN 500 MG TABLET PO SCH (20:43)
[2020-04-17] MEDS: IBUPROFEN 800 MG TABLET PO PRN (20:54)
[2020-04-18] MEDS: METOPROLOL SUCCINATE 25 MG TABLET.SA PO SCH (08:56)
[2020-04-18] MEDS: DEXAMETHASONE 2 MG TABLET PO SCH (08:57)
--- NOTE | 2020-04-18 12:21 | PN ---
Subjective - Date and Time Seen Date: 04/18/20 Time: 12:00 Subjective Narrative: cough a little better. no chest discomfort. sob with exertion a little better. still has no appetite. drinking nutritional supplements, but only two. have encouraged 4. not moving more. we will try to at least get her into a recliner, less time in bed.. Maintaining O2 sats on a venti mask @ 40%. Will try tapering as able. current O2 sats mid to high 90s. otherwise treatment will remain supportive and we will adjust as needed. Objective - Review of Systems Generalized/Overall Review: Reports: Malaise, Fatigue EENTM: Reports: No Symptoms Reported Respiratory: Reports: Cough, Shortness of Breath. Denies: Orthopnea Cardiac: Reports: No Symptoms Reported Abdominal: Reports: No Symptoms Reported Genitourinary Symptoms: Reports: No Symptoms Reported Musculoskeletal Complaints: Reports: Back Pain Neurological: Reports: No Symptoms Reported Skin: Reports: No Symptoms Reported Endocrine: Reports: No Symptoms Reported Misc: All systems neg except as marked - Vitals Vitals: Last Vital Signs Temp 37.1 C 04/18/20 07:26 Pulse 66 04/18/20 08:56 Resp 16 04/18/20 07:26 BP 135/68 04/18/20 08:56 Pulse Ox 97 04/18/20 07:26 - Exam Constitutional: Present: Alert, Oriented x3, Cooperative, Well developed, No distress, Morbidly obese ENT Exam: Present: normal ENT inspection, hearing grossly normal Neck: Present: normal inspection. Absent: lymphadenopathy (R), lymphadenopathy (L), thyromegaly Respiratory: Present: lungs clear, no respiratory distress Cardiovascular/Chest: Present: regular rate, rhythm, no gallop, no JVD, no murmur Abdomen: Present: Normal bowel sounds, soft, nontender, nondistended, no hepatospenomegaly, no masses, obese /Rectal: Present: Exam deferred Extremity: Present: normal range of motion, normal inspection Skin Exam: Present: normal color, warm/dry Lymphatic: Present: no adenopathy Neurologic: Present: normal mood/affect, oriented x 3 Appearance: Present: appropriate appearance, appropriate insight, neat Eye contact: Present: cooperative, good eye contact, normal speech Thoughts: Present: normal thought pattern Assessment/Plan - Problems/Diagnosis (1) Respiratory failure with hypoxia Problem: Acute Qualifiers: Chronicity: acute Qualified Code(s): J96.01 - Acute respiratory failure with hypoxia Narrative: using Venturi masks, will try to taper O2 as able. will try to get her up out of bed more. encouraged her to use at least four nutritional supplements daily. (2) Pneumonia due to COVID-19 virus Problem: Acute (3) Body mass index (BMI) of 50-59.9 in adult Problem: Chronic (4) Anorexia Problem: Acute (5) Prediabetes Problem: Chronic (6) Chronic low back pain Problem: Chronic Qualifiers: Back pain laterality: bilateral Sciatica presence: without sciatica Qualified Code(s): M54.5 - Low back pain; G89.29 - Other chronic pain (7) Chronic pain of both knees Problem: Chronic (8) Hypertension Problem: Chronic Qualifiers: Hypertension type: essential hypertension Qualified Code(s): I10 - Essential (primary) hypertension
[2020-04-18] MEDS: ENOXAPARIN SODIUM 40 MG/0.4 ML SYRG SC SCH (17:24)
[2020-04-18] MEDS: CYCLOBENZAPRINE HCL 10 MG TABLET PO SCH (20:37)
[2020-04-18] MEDS: IBUPROFEN 800 MG TABLET PO PRN (20:37)
[2020-04-18] MEDS: ACETAMINOPHEN 500 MG TABLET PO SCH (20:37)
[2020-04-18] MEDS: diphenhydrAMINE HCL 50 MG CAPSULE PO SCH (20:38)
--- NOTE | 2020-04-19 06:47 | PN ---
Subjective - Date and Time Seen Date: 04/19/20 Time: 06:25 Subjective Narrative: cough a little better. no chest discomfort. sob with exertion a little better. appetite is now improving. took four nutritional supplements yesterday. Now sats are in the mid 90s with 4 L/min by nasal cannula. treatment will remain supportive and we will adjust as needed. perhaps home in a day or two. Objective - Review of Systems Generalized/Overall Review: Reports: Malaise, Fatigue EENTM: Reports: No Symptoms Reported Respiratory: Reports: Cough, Shortness of Breath. Denies: Orthopnea Cardiac: Reports: No Symptoms Reported Abdominal: Reports: No Symptoms Reported Genitourinary Symptoms: Reports: No Symptoms Reported Musculoskeletal Complaints: Reports: Back Pain Neurological: Reports: No Symptoms Reported Skin: Reports: No Symptoms Reported Endocrine: Reports: No Symptoms Reported Misc: All systems neg except as marked - Vitals Vitals: Last Vital Signs Temp 35.5 C L 04/19/20 02:00 Pulse 68 04/19/20 02:00 Resp 20 04/19/20 02:00 BP 154/55 H 04/19/20 02:00 Pulse Ox 96 04/19/20 05:55 - Exam Constitutional: Present: Alert, Oriented x3, Cooperative, No distress, Obese ENT Exam: Present: normal ENT inspection, hearing grossly normal Neck: Present: normal inspection. Absent: lymphadenopathy (R), lymphadenopathy (L), thyromegaly Breasts: Present: Exam deferred Respiratory: Present: lungs clear, no respiratory distress Cardiovascular/Chest: Present: regular rate, rhythm, no edema, no gallop, no JVD, no murmur Abdomen: Present: Normal bowel sounds, soft, nontender, nondistended, no hepatospenomegaly, no masses, obese /Rectal: Present: Exam deferred Extremity: Present: normal inspection, normal capillary refill Skin Exam: Present: normal color, warm/dry Lymphatic: Present: no adenopathy Neurologic: Present: normal mood/affect Appearance: Present: appropriate appearance, appropriate insight, neat Eye contact: Present: cooperative, good eye contact, normal speech Thoughts: Present: normal thought pattern Assessment/Plan - Problems/Diagnosis (1) Respiratory failure with hypoxia Problem: Acute Qualifiers: Chronicity: acute Qualified Code(s): J96.01 - Acute respiratory failure with hypoxia Narrative: improving. vitals stable. will continue to taper O2. perhaps she can go home in a day or two. (2) Pneumonia due to COVID-19 virus Problem: Acute (3) Body mass index (BMI) of 50-59.9 in adult Problem: Chronic (4) Anorexia Problem: Acute (5) Prediabetes Problem: Chronic (6) Chronic low back pain Problem: Chronic Qualifiers: Back pain laterality: bilateral Sciatica presence: without sciatica Qualified Code(s): M54.5 - Low back pain; G89.29 - Other chronic pain (7) Chronic pain of both knees Problem: Chronic (8) Hypertension Problem: Chronic Qualifiers: Hypertension type: essential hypertension Qualified Code(s): I10 - Essential (primary) hypertension
[2020-04-19] MEDS: DEXAMETHASONE 2 MG TABLET PO SCH (09:02)
[2020-04-19] MEDS: IBUPROFEN 800 MG TABLET PO PRN ×2 (09:02→20:18)
[2020-04-19] MEDS: METOPROLOL SUCCINATE 25 MG TABLET.SA PO SCH (09:02)
[2020-04-19] MEDS: ENOXAPARIN SODIUM 40 MG/0.4 ML SYRG SC SCH ×2 (16:32→17:38)
[2020-04-19] MEDS: CYCLOBENZAPRINE HCL 10 MG TABLET PO SCH (20:18)
[2020-04-19] MEDS: diphenhydrAMINE HCL 50 MG CAPSULE PO SCH (20:18)
[2020-04-19] MEDS: ACETAMINOPHEN 500 MG TABLET PO SCH (20:19)
--- NOTE | 2020-04-20 07:17 | PN ---
Subjective - Date and Time Seen Date: 04/20/20 Time: 06:30 Subjective Narrative: cough a little better. no chest discomfort. sob with exertion a little better. appetite is improving. Now sats are in the mid to high 90s with 4 L/min by nasal cannula. We will continue to taper oxygen today. treatment will remain supportive and we will adjust as needed. perhaps home tomorrow. Objective - Review of Systems Generalized/Overall Review: Reports: Malaise, Fatigue EENTM: Reports: No Symptoms Reported Respiratory: Reports: Cough, Shortness of Breath. Denies: Orthopnea Cardiac: Reports: No Symptoms Reported Abdominal: Reports: No Symptoms Reported Genitourinary Symptoms: Reports: No Symptoms Reported Musculoskeletal Complaints: Reports: Back Pain Neurological: Reports: No Symptoms Reported Skin: Reports: No Symptoms Reported Endocrine: Reports: No Symptoms Reported Misc: All systems neg except as marked - Vitals Vitals: Last Vital Signs Temp 36.3 C 04/20/20 02:10 Pulse 72 04/20/20 02:10 Resp 20 04/20/20 02:10 BP 117/64 04/20/20 02:10 Pulse Ox 94 04/20/20 02:10 - Exam Constitutional: Present: Oriented x3, Cooperative, Well developed, Other - just woke up. drowsy., Morbidly obese ENT Exam: Present: normal ENT inspection, hearing grossly normal Neck: Absent: lymphadenopathy (R), lymphadenopathy (L), thyromegaly Breasts: Present: Exam deferred Respiratory: Present: lungs clear, no respiratory distress Cardiovascular/Chest: Present: regular rate, rhythm, no edema, no gallop, no JVD, no murmur Abdomen: Present: Normal bowel sounds, soft, nontender, nondistended, no hepatospenomegaly, no masses, obese /Rectal: Present: Exam deferred Extremity: Present: normal inspection, normal capillary refill Skin Exam: Present: normal color, warm/dry Lymphatic: Present: no adenopathy Neurologic: Present: normal mood/affect Appearance: Present: appropriate appearance, appropriate insight, neat Eye contact: Present: cooperative, good eye contact, normal speech Thoughts: Present: normal thought pattern Assessment/Plan - Problems/Diagnosis (1) Respiratory failure with hypoxia Problem: Acute Qualifiers: Chronicity: acute Qualified Code(s): J96.01 - Acute respiratory failure with hypoxia Narrative: improving. will taper O2 as tolerated today. if doing ok and off O2 tomorrow, we may be able to send her home. (2) Pneumonia due to COVID-19 virus Problem: Acute (3) Body mass index (BMI) of 50-59.9 in adult Problem: Chronic (4) Anorexia Problem: Acute (5) Prediabetes Problem: Chronic (6) Chronic low back pain Problem: Chronic Qualifiers: Back pain laterality: bilateral Sciatica presence: without sciatica Qualified Code(s): M54.5 - Low back pain; G89.29 - Other chronic pain (7) Chronic pain of both knees Problem: Chronic (8) Hypertension Problem: Chronic Qualifiers: Hypertension type: essential hypertension Qualified Code(s): I10 - Essential (primary) hypertension
[2020-04-20] MEDS: DEXAMETHASONE 2 MG TABLET PO SCH (08:44)
[2020-04-20] MEDS: METOPROLOL SUCCINATE 25 MG TABLET.SA PO SCH (08:45)
--- NOTE | 2020-04-20 09:47 | PN ---
Subjective - Date and Time Seen Date: 04/20/20 Time: 09:45 Subjective Narrative: Morbid obesity and excessive daytime sleepiness. Needs outpatient polysomnograph. Objective - Vitals Vitals: Last Vital Signs Temp 36.0 C 04/20/20 07:56 Pulse 60 04/20/20 08:45 Resp 17 04/20/20 07:56 BP 128/68 04/20/20 08:45 Pulse Ox 99 04/20/20 07:56 Assessment/Plan - Problems/Diagnosis (1) Respiratory failure with hypoxia Problem: Acute Qualifiers: Chronicity: acute Qualified Code(s): J96.01 - Acute respiratory failure with hypoxia (2) Pneumonia due to COVID-19 virus Problem: Acute (3) Body mass index (BMI) of 50-59.9 in adult Problem: Chronic (4) Anorexia Problem: Acute (5) Prediabetes Problem: Chronic (6) Chronic low back pain Problem: Chronic Qualifiers: Back pain laterality: bilateral Sciatica presence: without sciatica Qualified Code(s): M54.5 - Low back pain; G89.29 - Other chronic pain (7) Chronic pain of both knees Problem: Chronic (8) Hypertension Problem: Chronic Qualifiers: Hypertension type: essential hypertension Qualified Code(s): I10 - Essential (primary) hypertension (9) Excessive daytime sleepiness Problem: Acute Narrative: Needs outpatient polysomnograph.
[2020-04-20] MEDS: ENOXAPARIN SODIUM 40 MG/0.4 ML SYRG SC SCH (17:07)
[2020-04-20] MEDS: IBUPROFEN 800 MG TABLET PO PRN (19:55)
[2020-04-20] MEDS: ACETAMINOPHEN 500 MG TABLET PO SCH (20:00)
[2020-04-20] MEDS: CYCLOBENZAPRINE HCL 10 MG TABLET PO SCH (20:00)
[2020-04-20] MEDS: diphenhydrAMINE HCL 50 MG CAPSULE PO SCH (20:00)
[2020-04-21] MEDS: METOPROLOL SUCCINATE 25 MG TABLET.SA PO SCH (08:47)
[2020-04-21] MEDS ORDERED: DEXAMETHASONE 2 MG TABLET PO SCH (09:00)
--- NOTE | 2020-04-21 10:54 | DS ---
(1) Respiratory failure with hypoxia Problem: Resolved Qualifiers: Chronicity: acute Qualified Code(s): J96.01 - Acute respiratory failure with hypoxia (2) Pneumonia due to COVID-19 virus Problem: Acute (3) Excessive daytime sleepiness Problem: Acute (4) Body mass index (BMI) of 50-59.9 in adult Problem: Chronic (5) Prediabetes Problem: Chronic (6) Chronic respiratory failure with hypoxia Problem: Chronic Date of Discharge:: 04/21/20 Hospital Course: Deisi is a 59 yo female admitted for acute respiratory failure secondary to COVID-19 Viral Pneumonia. She was treated with Dexamethasone and oxygen therapy. Initially she was requiring only 2lpm via nasal Cannula but through her hospital course her need gradually increased all the way to 15lpm via venturi mask or high flow nasal cannula. She was continued on dexamethasone throughout. Eventually she was able to be weaned down on oxygen. She is currently on 2lpm via nasal cannula and feels comfortable being discharged to home on this rate. She was set up with home oxygen that will be delivered to her home today. There were concerns of sleep apnea and she will need a sleep study as outpatient. She will be continued on dexamethasone orally until she has we aned from oxygen. She will follow up with Dr. Blake in a week. I have recommended that she take Aspirin 325mg daily for the next month just to caution at her increased risk for VTE due to covid. Her current baseline is needing 2lpm of oxygen continuous secondary to covid. I hope that over time she will be able to wean to room air eventually, but her new baseline is of chronic respiratory f ailure with hypoxia needing 2lpm of oxygen continuous. Procedures Performed: none Results and Findings: Lab Pending Results 04/10/20 11:15: WBC 12.7 H, RBC 4.50, Hgb 13.6, Hct 42.6, MCV 94.7, MCH 30.2, MCHC 31.9 L, RDW 13.1, Plt Count 190, MPV 12.2, Immature Gran % (Auto) 0.70 H, Immature Gran # (Auto) 0.09 H, Neutrophils % 89.3 H, Lymphocytes % 7.8 L, Monocytes % 2.0, Eosinophils % 0.0, Basophils % 0.2, Nucleated RBC % 0.0, Neutrophils # 11.3 H, Lymphocytes # 0.99 L, Monocytes # 0.3, Eosinophils # 0.0, Absolute Basophils 0.0 04/10/20 11:15: Sodium 135, Plasma Sodium 135, Potassium 4.0, Chloride 95 L, Carbon Dioxide 27.5, Anion Gap 16.5 H, BUN 8, Creatinine 0.92, Est GFR (Non-Af Amer) 66, BUN/Creatinine Ratio 8.7 L, Random Glucose 118 H, Calcium 8.5, Calcium Adj for Albumin 9.2, Total Bilirubin 0.7, AST 59 H, ALT 29, Alkaline Phosphatase 120, Troponin I Less than 0.017, B-Natriuretic Peptide 291 H, Total Protein 7.9, Albumin 2.7 L 04/10/20 11:15: D-Dimer 1.05 H 04/10/20 11:15: Lactic Acid, Venous 2.9 H* 04/10/20 11:15: Procalcitonin 0.17 04/10/20 11:50: SARS-CoV-2 (PCR) Detected H 04/10/20 12:04: Influenza Type A Ag Negative, Influenza Type B Ag Negative 04/11/20 06:30: WBC 15.6 H D, RBC 4.43, Hgb 13.3, Hct 41.8, MCV 94.4, MCH 30.0, MCHC 31.8 L, RDW 12.9, Plt Count 224, MPV 11.5, Immature Gran % (Auto) 1.10 H, Immature Gran # (Auto) 0.17 H, Neutrophils % 86.3 H, Lymphocytes % 8.8 L, Monocytes % 3.7, Eosinophils % 0.0, Basophils % 0.1, Nucleated RBC % 0.0, Neutrophils # 13.5 H, Lymphocytes # 1.37 L, Monocytes # 0.6, Eosinophils # 0.0, Absolute Basophils 0.0 04/11/20 06:30: ESR 77 H 04/11/20 06:30: Sodium 135, Plasma Sodium 136, Potassium 3.4, Chloride 96 L, Carbon Dioxide 30.3, Anion Gap 12.1, BUN 10, Creatinine 0.92, Est GFR (Non-Af Amer) 66, BUN/Creatinine Ratio 10.9, Random Glucose 146 H, Calcium 8.9, Calcium Adj for Albumin 9.8, Total Bilirubin 0.5, AST 27, ALT 21, Alkaline Phosphatase 110, C-Reactive Prot, Quant 42.5 H, Total Protein 7.6, Albumin 2.5 L 04/11/20 12:00: Lactic Acid, Venous 1.4 04/12/20 06:30: WBC 14.5 H, RBC 4.05 L, Hgb 12.3 L, Hct 38.8, MCV 95.8, MCH 30.4, MCHC 31.7 L, RDW 13.1, Plt Count 259, MPV 11.4, Immature Gran % (Auto) 1.20 H, Immature Gran # (Auto) 0.17 H, Neutrophils % 85.9 H, Lymphocytes % 7.8 L, Monocytes % 5.0, Eosinophils % 0.0, Basophils % 0.1, Nucleated RBC % 0.0, Neutrophils # 12.5 H, Lymphocytes # 1.14 L, Monocytes # 0.7, Eosinophils # 0.0, Absolute Basophils 0.0 04/12/20 06:30: Sodium 133, Plasma Sodium 134, Potassium 3.5, Chloride 96 L, Carbon Dioxide 29.3, Anion Gap 11.2, BUN 18 D, Creatinine 1.08, Est GFR (Non-Af Amer) 55 L, BUN/Creatinine Ratio 16.7, Random Glucose 147 H, Calcium 9.0 04/13/20 06:45: WBC 11.1 H D, RBC 4.18 L, Hgb 12.6, Hct 39.8, MCV 95.2, MCH 30.1, MCHC 31.7 L, RDW 13.0, Plt Count 281, MPV 11.4, Immature Gran % (Auto) 1.90 H, Immature Gran # (Auto) 0.21 H, Neutrophils % 78.5 H, Lymphocytes % 10.8 L, Monocytes % 8.4, Eosinophils % 0.0, Basophils % 0.4, Nucleated RBC % 0.0, Neutrophils # 8.7 H, Lymphocytes # 1.20 L, Monocytes # 0.9, Eosinophils # 0.0, Absolute Basophils 0.0 04/13/20 06:45: Mean Blood Glucose 131, Hemoglobin A1c 6.2 H 04/14/20 06:15: WBC 11.7 H, RBC 4.19 L, Hgb 12.5, Hct 40.0, MCV 95.5, MCH 29.8, MCHC 31.3 L, RDW 13.0, Plt Count 271, MPV 11.5, Neutrophils % (Manual) 79 H, Band Neuts % (Manual) 2, Lymphocytes % (Manual) 7 L, Monocytes % (Manual) 9, Immature Granulocytes 2 H, Neutrophils # (Manual) 9.2 H, Lymphocytes # (Manual) 0.8 L, Monocytes # (Manual) 1.1 H, Nucleated RBCs 1.0, Hypersegmented Polys Trace, Atypic/Reactive Lymphs 1, Platelet Estimate Normal, Hypochromasia Trace 04/15/20 06:50: WBC 11.1 H, RBC 4.26, Hgb 12.8, Hct 40.2, MCV 94.4, MCH 30.0, MCHC 31.8 L, RDW 12.9, Plt Count 274, MPV 11.0, Neutrophils % (Manual) 72, Band Neuts % (Manual) 1, Lymphocytes % (Manual) 10 L, Monocytes % (Manual) 10 H, Immature Granulocytes 6 H, Neutrophils # (Manual) 8.0 H, Lymphocytes # (Manual) 1.1 L, Monocytes # (Manual) 1.1 H, Hypersegmented Polys Trace, Atypic/Reactive Lymphs 1, Platelet Estimate Normal, Giant Platelets Trace, Hypochromasia Trace 04/17/20 06:45: Sodium 133, Plasma Sodium 134, Potassium 3.7, Chloride 97, Carbon Dioxide 29.3, Anion Gap 10.4, BUN 18, Creatinine 1.00, Est GFR (Non-Af Amer) 60, BUN/Creatinine Ratio 18.0, Random Glucose 135 H, Calcium 8.6, Calcium Adj for Albumin 9.4, Total Bilirubin 0.6, AST 21, ALT 25, Alkaline Phosphatase 79, Total Protein 7.4, Albumin 2.6 L Discharge Location: Home Disposition: Home self-care Condition: Fair Discharge Activity: Activity as tolerated Discharge Diet: General/regular food Referrals: Dionicio Arzate MD [Primary Care Provider] - One Week Problem Oriented Discharge Instructions to Patient/Family: COVID-19 Additional Patient Instructions (free text): Sleep study as an outpatient. Home oxygen will be set up for 2lpm continuous at home due to chronic respiratory failure secondary to covid. Deisi may attempt to wean to room air as able at home. Prescriptions (Any new or edited meds): Aspirin 325 mg PO DAILY #30 tab Transmission Status: Pending to [facility] Dexamethasone [Decadron] 6 mg PO DAILY #14 tab Transmission Status: Pending to [facility] Complete Home Medications List: Complete Home Medication List: coenzyme Q10 200 mg capsule 200 mg PO DAILY 03/03/19 diphenhydramine 25 mg-acetaminophen 500 mg tablet 2 tab PO HS 03/03/19 Cyclobenzaprine HCl 20 mg PO HS 04/10/20 Etodolac See Rx Instructions PO BID 04/10/20 Metoprolol Succinate See Rx Instructions .ROUTE DAILY 04/10/20 Aspirin 325 mg PO DAILY #30 tab 04/21/20 Dexamethasone [Decadron] 6 mg PO DAILY #14 tab 04/21/20 Amb Orders for Discharge: Polysomnograph Diagnostic Location: None Selected Forms: Patient Portal Registration
[2020-04-21 13:22] VITALS: BP 120/70
== END 2020-04-21 13:22 | disposition home or self-care (01) | DRG 177 ==
LOC: ER 10:49 → SCU 10:49
PROVIDERS: ADMIT Family Medicine; ATTEND Allergy & Immunology
DX: J12.89 Other viral pneumonia; J96.01 Acute respiratory failure with hypoxia; R63.0 Anorexia; M25.561 Pain in right knee; M25.562 Pain in left knee; M54.5 Low back pain; E66.01 Morbid (severe) obesity due to excess calories; U07.1 COVID-19; G89.29 Other chronic pain; R73.03 Prediabetes; Z68.43 Body mass index [BMI] 50.0-59.9, adult; G47.10 Hypersomnia, unspecified; I10 Essential (primary) hypertension